=== PATIENT | female | born 1990 | race Two or more races ===

== ENCOUNTER 2019-01-08 13:56 | Emergency (ER) | payer MEDICAID ==
[~2019-01-08] VITALS: Ht 167.6 cm; Wt 64.0 kg
[2019-01-08 14:07] VITALS: BP_SYST 130
== END 2019-01-08 15:50 | disposition left against medical advice (07) ==
LOC: ER 13:56
DX: Z53.21 Procedure and treatment not carried out due to patient leaving prior to being seen by health care provider (principal)